=== PATIENT | male | born 1985 | race American Indian/Alaskan Native ===

== ENCOUNTER 2025-03-11 00:38 | Emergency (ER) | payer OTHER, SELFPAY ==
[2025-03-11 00:39] VITALS: BP 144/96
[2025-03-11 01:26] VITALS: BP 127/83
--- NOTE | 2025-03-11 01:59 | ED.GENMED ---
History of Present Illness
General
Chief Complaint: Dental Problem
Source: patient
Time Seen by Provider: 03/11/25 01:50
History of Present Illness
History of Present Illness:
Note:
CHIEF COMPLAINT(S)
Dental pain with intermittent episodes.
HISTORY OF PRESENT ILLNESS
The patient is a 39-year-old male presenting with significant dental pain. The patient states he had a crown on this tooth that fell off about a month ago. The patient reports that initially there was no pain; however, as of a few hours ago, he
began experiencing cyclical pain every two and a half minutes. The pain radiates from the right side of the face and is temporarily alleviated by cold water rinses. The patient describes this as an 'almost immediate relief' scenario, though the pain
recurrently returns. The patient notes no history of allergies to medications. He has observed an exposed nerve root at the site of previous dental work, with concerns regarding potential infection. Additionally, the patient reports being prescribed
amoxicillin by a dentist for this issue, currently taken intermittently: two doses today instead of the recommended three due to uncertainty about whether his prescription was for 875 mg twice daily or 500 mg thrice daily.
PAST MEDICAL AND SURGICAL HISTORY
The patient reports no known history of significant chronic conditions or surgical procedures that might impact the current care plan.
PHYSICAL EXAM
General: Alert, no acute distress.
Skin: Warm, dry.
Head: Normocephalic, atraumatic.
Neck: Supple, trachea midline.
Eye Ears, nose, mouth, and throat: Oral mucosa moist. Notable decay at tooth number 2 with no significant tenderness at the apex. No gingival swelling, facial swelling, trismus, or drooling observed.
Cardiovascular: Normal peripheral perfusion, no edema.
Respiratory: Respirations are non-labored.
Gastrointestinal: Abdomen nondistended.
Back: Normal range of motion, normal alignment.
Musculoskeletal: Normal ROM, normal strength.
Neurological: Alert and oriented to person, place, time, and situation, no focal neurological deficit observed.
Psychiatric: Cooperative, appropriate mood and affect.
PLAN
1. Administer injectable analgesia for acute pain relief.
2. Continue prescribed amoxicillin regimen, ensuring proper dosing frequency.
3. Recommend alternating doses of ibuprofen and acetaminophen every three hours for inflammation and pain management.
4. Advise the patient to seek an emergency dental consultation for potential intervention, such as a root canal procedure, to address the underlying issue.
DIFFERENTIAL DIAGNOSIS
The Differential Diagnosis includes, in no particular order and is not limited to:
1. Dental abscess
2. Pulpitis
3. Trigeminal neuralgia
4. Sinusitis-related dental pain
5. Temporomandibular joint disorder
6. Tooth fracture
7. Referred otitis media pain
8. Periodontal disease
9. Impacted tooth
10. Osteomyelitis of the jaw
Disposition:
SUMMARY OF ENCOUNTER
The patient is a 39-year-old male who presented to the emergency department with significant dental pain. It was noted that he has a hairline fracture and dental caries. He is under the care of his dentist and is already prescribed
amoxicillin-clavulanate (Augmentin). The decision was made to continue his current antibiotics. The patient was assessed, and although a dental block was offered, he preferred to avoid this treatment. Instead, he received an intramuscular injection
of ketorolac for pain relief.
emergency treatments administered: An injectable analgesic, ketorolac, was administered for acute pain relief.
PLAN
Continue current antibiotics, namely amoxicillin-clavulanate as prescribed by his dentist. Advised the patient to follow up as an outpatient with his dentist for further intervention and management of his dental issues.
FOLLOW-UP INSTRUCTIONS
The patient was instructed to follow up with his dentist for ongoing care and further dental intervention.
MEDICATION RECONCILIATION
The patient is currently receiving amoxicillin-clavulanate (Augmentin) as prescribed by his dentist.
MEDICAL DECISION MAKING
- Number and Complexity of Problems Addressed: Chronic conditions affecting care include dental caries and related symptoms. The differential diagnosis includes dental abscess and fracture, among other possibilities.
- Data: No additional labs or imaging tests were ordered or reviewed during this visit.
- Risk: Prescription medication was prescribed. Consideration of Admission/Observation: Escalation of care, including admission/observation, was considered given the complexity and risk of the patients presenting complaint, exam findings, and/or
their underlying comorbidities. However, ultimately, I feel the patient is safe for outpatient management with close follow-up. Reasoning: Workup reassuring, does not reveal any acute life/organ threatening processes, patients symptoms well
controlled upon reevaluation, reexamination is reassuring, vitals are stable, patient agreeable with discharge, reliable for follow-up.
DIAGNOSIS
Dental caries with pulpitis and fractured tooth (ICD-10: K02.9, K04.9, K08.4).
Past History
Past History
ED Past Medical History: NIDDM
Social History
Personal:
Living: with family
Phy Exam
Physical Exam
Physical Exam:
.
Course
Orders/Labs/Results
Orders:
Orders
03/11/25 01:59
Ketorolac [Toradol] 60 mg IM NOW STA
Vital Signs
Initial and Last Documented VS:
Initial Vital Signs
Temp Pulse Resp BP Pulse Ox
99.2 F 92 18 144/96 100
03/11/25 00:39 03/11/25 00:39 03/11/25 00:39 03/11/25 00:39 03/11/25 00:39
Last Documented Vital Signs
Temp Pulse Resp BP Pulse Ox
99.2 F 90 18 127/83 98
03/11/25 00:39 03/11/25 01:26 03/11/25 01:26 03/11/25 01:26 03/11/25 01:26
*Pulse Oximetry
SaO2: 98
Oxygen Mode of Delivery: Room air
Patient hypoxic: no
*Critical Care Note
Total Time (30-74mins, 75-104mins- exclusive of procedures): Not Applicable
ED Attending Note
-
Portions of this chart may have been created with voice recognition software.� Occasional wrong word or��sound alike� substitutions may have occurred due to the inherent limitations of voice recognition software.
Discharge Plan
Departure
Patient Disposition: Home (Routine Discharge)
Date of Disposition: 03/11/25
Time of Disposition: 02:01
Patient with high blood pressure during this ER visit?: No
Discharge Problem:
Abscess, dental, Fracture of tooth
Instructions: Dental Pain (DC), Fractured Tooth (DC), Tooth Abscess (DC)
Referrals:
NONE,* [Family Provider, Internal Medicine]
Activity Restrictions/Additional Instructions:
Continue your antibiotics. Please see your dentist tomorrow for follow-up and reevaluation. Use ibuprofen and Tylenol for pain control as discussed. Warm salt water rinses are reasonable. Return immediately for facial swelling, worsening pain or
any other concerns.
Interventions
Interventions:
*Risk Screen - Suicide Last Done: 03/11/25 00:39
*General Assessment Last Done: 03/11/25 01:24
*Neglect/Abuse Screening Last Done: 03/11/25 00:39
*ED- Fall Risk Assessment Last Done: 03/11/25 01:24
*ED COVID-19 Vaccine History Last Done: 03/11/25 01:24
*ED Influenza Vaccine History Last Done: 03/11/25 01:24
Discharge Date and Time
Print Language: FIJIAN
[2025-03-11] MEDS: TORADOL 60 MG IM (02:09)
== END 2025-03-11 02:19 | disposition home or self-care (01) ==
LOC: EMR 00:38
PROVIDERS: EMERGENCY PHYSICIAN Emergency Medicine
DX: K04.7 Periapical abscess without sinus (principal); S02.5XXA Fracture of tooth (traumatic), initial encounter for closed fracture; X58.XXXA Exposure to other specified factors, initial encounter; K02.9 Dental caries, unspecified; K04.01 Reversible pulpitis; E11.9 Type 2 diabetes mellitus without complications
CPT/HCPCS: 96372; 99284